=== PATIENT | female | born 1990 | race African-American/Black ===

== ENCOUNTER 2016-07-31 16:18 | Emergency (ER) | payer MEDICAID ==
[~2016-07-31] VITALS: Ht 162.6 cm; Wt 70.3 kg
[~2016-07-31 16:18] MED LIST: BIRTHCONTROL
--- NOTE | 2016-07-31 16:45 | NUR ---
PT IS IN ROOM #2B. DR REDMOND EVALUATED THE PT.
[2016-07-31 17:58] LABS: *BILIRUBIN,URIN NEGATIVE (NEGATIVE); *BLOOD, URINE Trace-intact (NEGATIVE); *CLARITY,URINE CLEAR (CLEAR); *COLOR,URINE YELLOW (YELLOW); *KETONES,URINE NEGATIVE (NEGATIVE); *PROTEIN,URINE 1+ (NEGATIVE); *UROBILINOGEN,URINE 0.2 E.U./dl (NORMAL); LEUKOCYTE ESTERASE ,URINE NEGATIVE (NEGATIVE); NITRITE, URINE NEGATIVE (NEGATIVE); PH,URINE 6.5 (5.0-8.0); UGLUCOSE NEGATIVE (NEGATIVE)
[2016-07-31 18:04] LABS: BACTERIA,URINE NONE SEEN /HPF (NONE SEEN); RBC,URINE 0-3 /HPF (0-3); SQUAMOUS EPITHELIAL CELL,UR NONE SEEN /HPF (NONE SEEN); WBC,URINE 0-3 /HPF (0-3)
[2016-07-31 18:14] LABS: *URINE HCG, QUAL NEGATIVE (NEGATIVE)
[2016-07-31] MEDS ORDERED: CEFTRIAXONE 500 MG VIAL IM ONE (18:15)
[2016-07-31] MEDS ORDERED: AZITHROMYCIN 250 MG TABLET PO ONE (18:15)
[2016-07-31] MEDS ORDERED: ONDANSETRON ODT 4 MG TAB.RAPDIS SL ONE (18:15)
[2016-07-31] MEDS ORDERED: AZITHROMYCIN 250 MG TABLET ONE (18:29)
[2016-07-31] MEDS ORDERED: CEFTRIAXONE 500 MG VIAL ONE (18:30)
[2016-07-31] MEDS ORDERED: ONDANSETRON ODT 4 MG TAB.RAPDIS ONE (18:31)
--- NOTE | 2016-07-31 18:57 | NUR ---
PT WAS D/C TO HOME. D/C INSTRUCTIONS GIVEN TO THE PT.
[2016-07-31 18:58] VITALS: BP 128/79
[2016-08-03 09:12] LABS: *GC NAA Negative (Negative); *TRIC.VAG. NAA Negative (Negative)
== END 2016-07-31 18:59 | disposition home or self-care (01) ==
LOC: ER 16:21
DX: N39.0 Urinary tract infection, site not specified (principal)
CPT/HCPCS: 84703; 87491; A4663; J0696; Q0144; Q0162